=== PATIENT | female | born 1970 | race Caucasian/White ===

== ENCOUNTER 2016-04-28 05:25 | Day surgery (SDC) | payer OTHER ==
[2016-04-27 10:11] VITALS: BMI 28.0
[2016-04-28] VITALS (9 sets, daily range): BP systolic 94–127; BP diastolic 70–84; PULSE 56–106; RESP 16–28; Ht 152.4 cm; Wt 60.8 kg
[~2016-04-28] VITALS: Ht 152.4 cm; Wt 60.8 kg
[2016-04-28] MEDS ORDERED: LACTATED RINGER'S 1,000 ML IV* SCH (05:30)
[2016-04-28] MEDS ORDERED: STRONG IODINE 14 ML SOLUTION TOP ONE (06:54)
[2016-04-28] MEDS ORDERED: ATEN-51 PO (06:55)
[2016-04-28] MEDS ORDERED: CANA100T PO (06:55)
[2016-04-28] MEDS ORDERED: IBUP800T25 PO (06:55)
[2016-04-28] MEDS ORDERED: PROPOFOL 20 ML ONE (07:49)
[2016-04-28] MEDS ORDERED: MIDAZOLAM 1 MG/ML 2 ML INJ ONE (07:49)
[2016-04-28] MEDS ORDERED: FENTAnyl 50 MCG/ML VIAL ONE (07:49)
[2016-04-28] MEDS ORDERED: CEFAZOLIN 1 GM INJ ONE (07:59)
[2016-04-28] MEDS ORDERED: PHENYLephrine (100 MCG/ML) 5ML SYG ONE (08:02)
[2016-04-28] MEDS ORDERED: ONDANSETRON 4 MG INJ ONE (08:02)
[2016-04-28] MEDS ORDERED: FAMOTIDINE 20 MG INJ ONE (08:02)
[2016-04-28] MEDS ORDERED: EPHEDrine SULFATE 50 MG/5 ML SYG ONE (08:14)
[2016-04-28] MEDS ORDERED: PROCHLORPERAZINE 10 MG INJ IV PRN (08:30)
[2016-04-28] MEDS ORDERED: HYDROmorphONE (0.2 MG/ML) 10ML SYG IV PRN ×2 (08:30)
[2016-04-28] MEDS ORDERED: hydrALAzine 20 MG INJ IV PRN (08:30)
[2016-04-28] MEDS ORDERED: MEPERIDINE 25 MG INJ IV PRN (08:30)
[2016-04-28] MEDS ORDERED: HALOPERIDOL 5 MG INJ IV PRN (08:30)
--- NOTE | 2016-04-28 08:40 | PD.PPDC ---
COLLECT ON DELIVERY CLERK Discharge Instruction Diagnosis Final Diagnosis: mild cervical dysplasia Condition Patient Condition: Stable Activity/Restrictions Activity: May Shower Restrictions: No Sexual Activity Nothing in the Vagina No Tornado No Tampons, douche Follow-up Follow-up with Physician: Week/Weeks Return to clinic for HOT BALLER Instructions: Fever greater than 101 Chills Worsening abdominal pain Excessive Vaginal Bleeding More than 2 pads per hour Unable to tolerate diet MEGHAN CHAMORRO MD Apr 28, 2016 08:40
--- NOTE | 2016-04-28 08:42 | HPN ---
Date/Time of Note Date/Time of Note DATE: 04/28/16 TIME: 08:41 Interval H&P Admission Note Pt. seen H&P reviewed: No system changes MEGHAN CHAMORRO MD Apr 28, 2016 08:42
--- NOTE | 2016-04-28 11:06 | OPR ---
DATE OF OPERATION: 04/28/2016 PREOPERATIVE DIAGNOSIS: Mild cervical dysplasia. POSTOPERATIVE DIAGNOSIS: See pathological report. OPERATION PERFORMED: Cold conization of the cervix and fractional dilatation and curettage. ANESTHESIA: General. ANESTHESIOLOGIST: Dr. aRmos.. SURGEON: Gómez Mas MD ESTIMATED BLOOD LOSS: Approximately 20 mL. PROCEDURE: Under the proper induction of general anesthesia, the patient was placed in dorsal litho rik position. Perineal area and vagina wall was prepped and draped in usual aseptic manner. Weigh sonny speculum was introduced and the cervix was visualized, which appeared to be parous. Anterior li p of cervix was grasped with a single tooth tenaculum and hemostatic ligature placed on 3 o'clock an d 9 o'clock using 0 chromic catgut and left the suture left long for the traction. The Lugol soluti on applied on the cervical surface. There was no significant Schiller positive area. Circular inci sarah was made on the cervical mucosa starting from the lower lip counterclockwise, and this cone of the cervix was removed from the cervix en bloc by using De Oliveira scissors at the end. Endocervical cure ttage was performed with obtaining scanty tissue with blood, which was sent to pathology separately and the cavity was sounded, which was 7 cm in depth and the os was dilated gradually enough to submi t the uterine curet which was inserted, then intrauterine cavity was curetted in all directions, wit h obtaining scanty tissue which was sent to pathology. A Sturmdorf suture using [address] arting from the lower lip and followed by upper lip, thus umbilicating the edge of the defect area. The suture on the 3 o'clock and 9 o'clock was cut after a piece of Surgicel was inserted on the def ect. No significant bleeding noted. The patient was sent to recovery room in stable condition. Fi nal sponge count, needle, sponge count correct. Dictated By: GÓMEZ FAIRCHILD/EMA Conf#: [id number] DID#: [id number]
== END 2016-04-28 12:08 | disposition home or self-care (01) ==
LOC: SDS 05:25
PROVIDERS: ATTEND Obstetrics & Gynecology
DX: D06.9 Carcinoma in situ of cervix, unspecified (principal); I10 Essential (primary) hypertension; E11.9 Type 2 diabetes mellitus without complications
CPT/HCPCS: 57520; 82962; 84703; 88305; J0690; J1170; J2175; J2250; J2370; J2405; J3010; Z7512; Z7610

== ENCOUNTER 2016-05-09 18:54 | Emergency (ER) | payer OTHER ==
[~2016-05-09] VITALS: Ht 152.4 cm; Wt 63.0 kg
[~2016-05-09 18:54] MED LIST: ATEN-51 PO; CANA100T PO; IBUP800T25 PO
[2016-05-09 18:59] VITALS: Ht 152.4 cm; Wt 63.0 kg
--- NOTE | 2016-05-09 19:45 | ERD ---
ER Documentation Chief Complaint Date/Time DATE: 05/09/16 TIME: 19:43 Chief Complaint vaginal bleeding after d&c 04/28/16 HPI 45-year-old female presents to emergency department for complaints of vaginal bleeding after a procedure done in 04/28/2016, patient had a dilatation and curettage and biopsy in the cervix is in the cervical area, started to have bleeding afterwards. Patient describes the bleeding as heavy, with clots, soaks 5-7 pads per day. Patient denies any abdominal pain, cramping, fever or chills. Patient denies any nausea vomiting. Patient denies being . Patient had a bilateral tubal ligation done already. Patient denies any fainting episodes, palpitations chest pain or dizziness. ROS All systems reviewed and are negative except as per history of present illness. Medications Home Meds Reported Medications Ibuprofen* (Ibuprofen*) 800 Mg Tab, 800 MG PO Q6H Y for PAIN, TAB 04/28/16 Atenolol* (Atenolol*) 25 Mg Tablet, 25 MG PO DAILY, #30 TAB 04/28/16 Canagliflozin (Invokana) 100 Mg Tablet, 100 MG PO DAILY, TAB 04/28/16 Allergies Allergies: Coded Allergies: No Known Drug Allergy (Verified Allergy, Unknown, 05/09/16) PMhx/Soc History of Surgery: Yes (B TUBAL LIGATION/ , D&C 04/28/16) Anesthesia Reaction: No Hx Neurological Disorder: No Hx Respiratory Disorders: No Hx Cardiac Disorders: Yes (HTN) Hx Psychiatric Problems: No Hx Miscellaneous Medical Probl: Yes (DM) Hx Alcohol Use: Yes (OCCASION) Hx Substance Use: No Hx Tobacco Use: No Smoking Status: Former smoker FmHx Family History: No coronary disease, No diabetes, No other Physical Exam Vitals Vital Signs Date Time Temp Pulse Resp B/P Pulse Ox O2 Delivery O2 Flow Rate FiO2 05/09/16 18:59 97.8 65 20 114/85 100 Physical Exam GENERAL: The patient is well developed and appropriate for usual state of health, in no apparent distress. CHEST: Clear to auscultation bilaterally. There are no rales, wheezes or rhonchi. HEART: Regular rate and rhythm. No murmurs, clicks, rubs or gallops. No S3 or S4. ABDOMEN: Soft, nontender and nondistended. Good bowel sounds. No rebound or guarding. No gross peritonitis. No gross organomegaly or masses. No Varma sign or McBurney point tenderness. BACK: No midline or flank tenderness. EXTREMITIES: Equal pulses bilaterally. There is no peripheral clubbing, cyanosis or edema. No focal swelling or erythema. Full range of motion. Grossly neurovascularly intact. NEURO: Alert and oriented. Cranial nerves 2-12 intact. Motor strength in all 4 extremities with 5/5 strength. Sensation grossly intact. Normal speech and gait. SKIN: There is no apparent rash or petechia. The skin is warm and dry. HEMATOLOGIC AND LYMPHATIC: There is no evidence of excessive bruising or lymphedema. No gross cervical, axillary, or inguinal lymphadenopathy. Result Diagram: 05/09/16 1950 05/09/16 [facility] Results 24 hrs Laboratory Tests Test 05/09/16 19:50 Alanine Aminotransferase (ALT/SGPT) 30IU/L Albumin 4.7g/dl Albumin/Globulin Ratio 1.34 Alkaline Phosphatase 102IU/L Anion Gap 17 Aspartate Amino Transf (AST/SGOT) 23IU/L Basophils # 0.010^3/ul Basophils % 0.4% Beta HCG, Quantitative < 2.4mIU/ml Blood Urea Nitrogen 12mg/dl Calcium Level 10.2mg/dl Carbon Dioxide Level 31mmol/L Chloride Level 99mmol/L Creatinine 0.70mg/dl Direct Bilirubin 0.00mg/dl Eosinophils # 0.210^3/ul Eosinophils % 2.7% Globulin 3.50g/dl Glucose Level 164mg/dl Hematocrit 42.7% Hemoglobin 13.4g/dl Indirect Bilirubin 0.4mg/dl Lymphocytes # 2.810^3/ul Lymphocytes % 36.1% Mean Corpuscular Hemoglobin 26.2pg Mean Corpuscular Hemoglobin Concent 31.4g/dl Mean Corpuscular Volume 83.4fl Mean Platelet Volume 9.7fl Monocytes # 0.310^3/ul Monocytes % 4.3% Neutrophils # 4.310^3/ul Neutrophils % 56.2% Nucleated Red Blood Cells # 0.010^3/ul Nucleated Red Blood Cells % 0.0/100WBC Platelet Count 09748^3/UL Potassium Level 4.3mmol/L Red Blood Count 5.1210^6/ul Red Cell Distribution Width 15.6% Sodium Level 143mmol/L Total Bilirubin 0.4mg/dl Total Protein 8.2g/dl Urine Bacteria FEW Urine Bilirubin NEGATIVE Urine Clarity CLEAR Urine Color YELLOW Urine Epithelial Cells FEW Urine Glucose 0.5%% Urine Hemoglobin 3+ Urine Ketones TRACE Urine Leukocyte Esterase NEGATIVE Urine Microscopic RBC 5-10/HPF Urine Microscopic WBC 0-2/HPF Urine Nitrite NEGATIVE Urine Specific [place] >=1.030 Urine Total Protein NEGATIVE Urine Urobilinogen 0.2 E.U./dL Urine pH 5.5 White Blood Count 7.710^3/ul PROCEDURE: US Pelvis. CLINICAL INDICATION: Vaginal bleeding. TECHNIQUE: The pelvis was evaluated with transabdominal and transvaginal sonography in the axial and sagittal planes. COMPARISON: No prior study is available for comparison. FINDINGS: Uterus: 9.9 x 4.9 x 7.1 cm. Endometrium: 3.5 mm. Right ovary: 3.3 x 1.6 x 2.2 cm. Left ovary: Not visualized. Uterine masses: The uterus is heterogeneous. There is an anterior fibroid in the uterus measuring 1.8 x 1.7 cm and an anterior fibroid in the uterus measuring 4.0 x 2.8 x 3.1 cm. Ovarian masses: None. Color Doppler and pulsed Doppler sonography demonstrate normal flow to the ovaries. Other pelvic masses: None. Free fluid: None. IMPRESSION: 1. Fibroids in the uterus measuring 1.8 cm and 4.0 cm. 2. Otherwise normal pelvic ultrasound. RPTAT: QQ .Nino Alex MD, MD Date Time Electronically viewed and signed by .Nino Alex MD, MD on 05/09/2016 21:06 .R/ CC: STACI NOLAND OIL TRUCK DRIVER Procedures/MDM Medical Decision Making: Patients vaginal bleeding is most likely consistent of dysfunctional uterine bleeding, possibly caused by the uterine fibroids. Patient does not show any evidence of hypovolemic shock. Patients hemoglobin and hematocrit is stable. There is low suspicion for ectopic . SANDRA results show uterine fibroids BetaHCG Quantitative is low consistent with negative There is no signs of symptoms of dehydration. There is low suspicion for sepsis. Patient appears well and is hemodynamically stable. Disposition: Home. Condition: Stable Disposition: Ibuprofen ferrous sulfate, Colace Instructions: Patient is advised to do bed rest, avoid heavy lifting, and avoid having sex until cleared by OB doctor. Patient is advised to follow up with OB doctor for reevaluation of symptoms and possible treatment. Patient is advised that is symptoms are worst, severe bleeding, dizziness, severe abdominal pain, fever, worst signs and symptoms to return to the emergency department immediately. Departure Diagnosis: Primary Impression: Vaginal bleeding Additional Impression: Uterine fibroid Uterine leiomyoma location: unspecified location Qualified Code: D25.9 - Uterine leiomyoma, unspecified location Condition: Stable Patient Instructions: Dysfunctional Uterine Bleeding, Uterine Fibroids Additional Instructions: Patient is advised to do bed rest, avoid heavy lifting, and avoid having sex until cleared by OB doctor. Patient is advised to follow up with OB doctor for reevaluation of symptoms and possible treatment. Patient is advised that is symptoms are worst, severe bleeding, dizziness, severe abdominal pain, fever, worst signs and symptoms to return to the emergency department immediately. STACI NOLAND NP May 09, 2016 19:45
[2016-05-09 20:09] LABS: ADD UMIC YES; URINE BILIRUBIN (Dip) NEGATIVE (NEGATIVE); URINE BLOOD (Dip) 3+ (NEGATIVE); URINE COLOR YELLOW (YELLOW); URINE KETONES (Dip) TRACE (NEGATIVE); URINE LEUKOCYTE ESTERASE (Dip) NEGATIVE (NEGATIVE); URINE NITRITE (Dip) NEGATIVE (NEGATIVE); URINE TOTAL PROTEIN (Dip) NEGATIVE (NEGATIVE); URINE UROBILINOGEN (Dip) 0.2 E.U./dL (0.1-1.0)
[2016-05-09 20:11] LABS: ADD SCAN DIFF NO
[2016-05-09 20:13] LABS: BASOPHILS % 0.4 % (0.0-2.0); EOSINOPHILS # 0.2 10^3/ul (0.0-0.5); EOSINOPHILS % 2.7 % (0.0-7.0); HEMATOCRIT 42.7 % (37.0-47.0); HEMOGLOBIN 13.4 g/dl (12.0-16.0); LYMPHOCYTES # 2.8 10^3/ul (0.8-2.9); LYMPHOCYTES % 36.1 % (15.0-51.0); MEAN CORPUSCULAR HEMOGLOBIN 26.2 pg (29.0-33.0); MEAN CORPUSCULAR HGB CONC 31.4 g/dl (32.0-37.0); MEAN CORPUSCULAR VOLUME 83.4 fl (82.0-101.0); MEAN PLATELET VOLUME 9.7 fl (7.4-10.4); MONOCYTE # 0.3 10^3/ul (0.3-0.9); MONOCYTES % 4.3 % (0.0-11.0); NEUTROPHIL # 4.3 10^3/ul (1.6-7.5); NEUTROPHILS % 56.2 % (39.0-77.0); PLATELET COUNT 405 10^3/UL (140-415); RED BLOOD COUNT 5.12 10^6/ul (4.20-5.40); RED CELL DISTRIBUTION WIDTH 15.6 % (11.5-14.5); WHITE BLOOD COUNT 7.7 10^3/ul (4.8-10.8)
[2016-05-09 20:24] LABS: BACTERIA,URINE FEW
[2016-05-09 20:26] LABS: ALBUMIN 4.7 g/dl (3.3-4.9); POTASSIUM 4.3 mmol/L (3.5-5.1)
[2016-05-09 20:28] LABS: BILIRUBIN,INDIRECT 0.4 mg/dl (0-1.1); BILIRUBIN,TOTAL 0.4 mg/dl (0.2-1.3); CREATININE 0.7 mg/dl (0.44-1.00); TOTAL PROTEIN 8.2 g/dl (6.1-8.1)
[2016-05-09 20:29] LABS: ALBUMIN/GLOBULIN RATIO 1.34; CALCIUM 10.2 mg/dl (8.4-10.2)
--- NOTE | 2016-05-09 21:06 | RADRPT ---
PROCEDURE: US Pelvis. CLINICAL INDICATION: Vaginal bleeding. TECHNIQUE: The pelvis was evaluated with transabdominal and transvaginal sonography in the axial a nd sagittal planes. COMPARISON: No prior study is available for comparison. FINDINGS: Uterus: 9.9 x 4.9 x 7.1 cm. Endometrium: 3.5 mm. Right ovary: 3.3 x 1.6 x 2.2 cm. Left ovary: Not visualized. Uterine masses: The uterus is heterogeneous. There is an anterior fibroid in the uterus measuring 1 .8 x 1.7 cm and an anterior fibroid in the uterus measuring 4.0 x 2.8 x 3.1 cm. Ovarian masses: None. Color Doppler and pulsed Doppler sonography demonstrate normal flow to the ova juan pablo. Other pelvic masses: None. Free fluid: None. IMPRESSION: 1. Fibroids in the uterus measuring 1.8 cm and 4.0 cm. 2. Otherwise normal pelvic ultrasound. RPTAT: QQ .Nino Alex MD, MD Date Time Electronically viewed and signed by .Nino Alex MD, on 05/09/2016 21:06 .R/
[2016-05-09] MEDS ORDERED: DOCU-144 PO (21:15)
[2016-05-09] MEDS ORDERED: FER325 PO (21:15)
[2016-05-09] MEDS ORDERED: IBUP-1542 PO (21:15)
[2016-05-09 22:06] VITALS: BP 123/82; PULSE 67; RESP 16; TEMP 98
== END 2016-05-09 22:07 | disposition home or self-care (01) ==
LOC: FTE 18:54
DX: N93.9 Abnormal uterine and vaginal bleeding, unspecified (principal); I10 Essential (primary) hypertension; E11.9 Type 2 diabetes mellitus without complications; D25.9 Leiomyoma of uterus, unspecified; Z87.891 Personal history of nicotine dependence; Z79.84 Long term (current) use of oral hypoglycemic drugs
CPT/HCPCS: 76830; 76856; 80053; 81001; 84702; 85025; Z7502; 81003

== ENCOUNTER 2016-11-01 05:29 | Inpatient (IN) | payer OTHER ==
[2016-10-31 11:44] VITALS: BMI 28.0
--- NOTE | 2016-10-31 17:58 | HP ---
Date/Time of Note Date/Time of Note DATE: 10/31/16 TIME: 17:39 Assessment/Plan VTE Prophylaxis VTE Prophylaxis Intervention: ambulation, anti-embolic stocking Assessment/Plan Assessment/Plan A AUSTEN III, uterine fibroids P JENNIFER HPI/ROS Admit Date/Time Admit Date/Time Hx of Present Illness 46 y.o [id number] for JENNIFER for CINIII and uterine fibroids cold cone biopsy done in apr 2016 revealed HSIL also had tubal sterilization done known to have D.M and HTN HbA!C 6.6 ROS Constitutional: improved, no complaints Eyes: no complaints ENT: no complaints Respiratory: no complaints Cardiovascular: no complaints Gastrointestinal: no complaints Genitourinary: no complaints Musculoskeletal: no complaints Skin: no complaints Neurologic: no complaints Endocrine: no complaints Lymphatic: no complaints Psychological: nl mood/affect, no complaints Immunologic: no complaints PMH/Family/Social Past Medical History Medical History: diabetes, hypertension Past Surgical History tubal sterilisation endometrial ablation X5 normal vaginal delivery Family History Significant Family History: cancer (uterine cancer ), diabetes, hypertension Exam/Review of Systems Exam Constitutional: alert, oriented, well developed Psych: nl mood/affect, no complaints Head: atraumatic, normocephalic Eyes: EOMI, PERRL, nl conjunctiva, nl lids, nl sclera ENMT: nl external ears & nose, nl lips & teeth, nl nasal mucosa & septum Neck: non-tender, supple Respiratory: clear to auscultation, normal air movement Cardiovascular: nl pulses, regular rate and rhythm Gastrointestinal: nl liver, spleen, non-tender, soft Musculoskeletal: nl extremities to inspection Extremities: normal pulses Neurological: SWEEPER DRIVER II-XII intact, nl mental status, nl speech, nl strength Skin: nl turgor, No rash or lesions Lymph: nl lymph nodes Medications Medications Current Medications Cefazolin Sodium/ Dextrose 50 ml @ 100 mls/hr PREOP IVPB ; Start 11/01/16 at 06 :00; Stop 11/01/16 at 15:00 Lactated Ringer's (Lr) 1,000 ml @ 125 mls/hr Q8H IV* ; Start 11/01/16 at 07:00 ; Stop 11/01/16 at 14:59 MEGHAN CHAMORRO MD Oct 31, 2016 17:49
[2016-11-01] VITALS (26 sets, daily range): BP systolic 91–128; BP diastolic 49–80; PULSE 50–78; RESP 16–26; Ht 152.4 cm; Wt 63.3 kg
[~2016-11-01] VITALS: Ht 152.4 cm; Wt 63.3 kg
[~2016-11-01 05:29] MED LIST changes: +DOCU-144 PO; +FER325 PO; +IBUP-1542 PO
[2016-11-01] MEDS ORDERED: CEFAZOLIN 2 GM/50 ML (PMX) 50 ML IVPB SCH (06:00)
[2016-11-01] MEDS ORDERED: OMEG1CAP2 PO (06:30)
[2016-11-01] MEDS ORDERED: ATROPINE 1 MG/10 ML SYRINGE ONE (07:00)
[2016-11-01] MEDS ORDERED: LACTATED RINGER'S 1,000 ML IV* SCH (07:00)
[2016-11-01] MEDS ORDERED: ROCURONIUM 50 MG INJ ONE ×2 (07:40→09:32)
[2016-11-01] MEDS ORDERED: PROPOFOL 20 ML ONE (07:40)
[2016-11-01] MEDS ORDERED: LIDOCAINE 2% (SDV) 5 ML INJ ONE (07:40)
[2016-11-01] MEDS ORDERED: SUCCINYLCHOLINE CHLORIDE 100 MG/5 ML SYG IV ONE (07:40)
[2016-11-01] MEDS ORDERED: NEOSTIGMINE 3 MG/3 ML SYRINGE ONE (07:40)
[2016-11-01] MEDS ORDERED: MEPERIDINE 100 MG INJ ONE (07:40)
[2016-11-01] MEDS ORDERED: GLYCOPYRROLATE 0.4 MG INJ ONE ×2 (07:40→09:59)
[2016-11-01] MEDS ORDERED: ONDANSETRON 4 MG INJ ONE ×2 (09:59→10:44)
--- NOTE | 2016-11-01 10:39 | SIPON ---
Date/Time of Note Date/Time of Note DATE: 11/01/16 TIME: 10:36 Operative Report Free Text/Dictation here for JENNIFER poss BSO Preoperative Diagnosis uterine fibroids and CINIII Postoperative Diagnosis see path report Operation/Procedure Performed JENNIFER and BS Surgeon: MEGHAN CHAMORRO MD therapeutic recreation assistant: CRIS MARC Anesthesia Type: general Estimated Blood Loss: 100 - 150 ml's Transfusion Required: no Specimens uterus cervix bilateral tubes Grafts/Implants: none Complications: no MEGHAN CHAMORRO MD Nov 01, 2016 10:39
[2016-11-01] MEDS ORDERED: HYDROmorphONE (0.2 MG/ML) 10ML SYG IV ONE (10:43)
[2016-11-01] MEDS ORDERED: MEPERIDINE 25 MG INJ ONE (10:43)
[2016-11-01] MEDS ORDERED: HYDROmorphONE 0.2 MG/ML PCA ONE (10:43)
[2016-11-01] MEDS ORDERED: FENTAnyl 50 MCG/ML VIAL ONE (10:43)
[2016-11-01] MEDS ORDERED: ONDANSETRON 4 MG INJ IV PRN (11:00)
[2016-11-01] MEDS ORDERED: MEPERIDINE 25 MG INJ IV PRN (11:00)
[2016-11-01] MEDS ORDERED: MIDAZOLAM 1 MG/ML 2 ML INJ IV PRN (11:00)
[2016-11-01] MEDS ORDERED: HYDROCODONE/APAP (5/325) TAB PO PRN (11:00)
[2016-11-01] MEDS ORDERED: DIPHENHYDRAMINE 50 MG INJ IV PRN ×2 (11:00)
[2016-11-01] MEDS ORDERED: hydrALAzine 20 MG INJ IV PRN (11:00)
[2016-11-01] MEDS ORDERED: NALOXONE (0.4 MG/ML) INJ IV PRN (11:00)
[2016-11-01] MEDS ORDERED: morphine (1 MG/ML) 10ML SYRINGE IV PRN ×3 (11:00)
[2016-11-01] MEDS ORDERED: EPHEDrine SULFATE 50 MG/5 ML SYG IV PRN (11:00)
[2016-11-01] MEDS ORDERED: ACETAMINOPHEN 325 MG TAB PO PRN (11:00)
[2016-11-01] MEDS ORDERED: HYDROmorphONE 0.2 MG/ML PCA IV SCH (11:00)
[2016-11-01] MEDS ORDERED: LABETALOL HCL 20MG INJ IV PRN (11:00)
[2016-11-01] MEDS ORDERED: FENTAnyl 50 MCG/ML VIAL IV PRN ×2 (11:00)
[2016-11-01] MEDS: FENTAnyl 50 MCG/ML VIAL IV PRN ×2 (11:01→11:08)
[2016-11-01] MEDS: IBUPROFEN 600 MG TAB PO SCH ×2 (12:00→17:06)
[2016-11-01] MEDS: CEFAZOLIN 2 GM/50 ML (PMX) 50 ML IVPB SCH ×2 (14:51→22:22)
[2016-11-01] MEDS: LACTATED RINGER'S 1,000 ML IV SCH ×2 (14:54→20:42)
[2016-11-01] MEDS: ONDANSETRON 4 MG INJ IV PRN ×2 (16:39→22:22)
[2016-11-01] MEDS: KETOROLAC 30 MG INJ IV PRN (20:09)
[2016-11-02 00:33] VITALS: BP 117/69; RESP 20
[2016-11-02] MEDS: KETOROLAC 30 MG INJ IV PRN ×3 (02:34→16:29)
[2016-11-02 05:30] LABS: BASOPHILS % 0.3 % (0.0-2.0); EOSINOPHILS % 0.3 % (0.0-7.0); HEMATOCRIT 32.4 % (37.0-47.0); HEMOGLOBIN 10.9 g/dl (12.0-16.0); LYMPHOCYTES # 1.8 10^3/ul (0.8-2.9); LYMPHOCYTES % 15.7 % (15.0-51.0); MEAN CORPUSCULAR HGB CONC 33.6 g/dl (32.0-37.0); MEAN CORPUSCULAR VOLUME 89.3 fl (82.0-101.0); MEAN PLATELET VOLUME 9.9 fl (7.4-10.4); MONOCYTE # 0.7 10^3/ul (0.3-0.9); MONOCYTES % 6.3 % (0.0-11.0); PLATELET COUNT 251 10^3/UL (140-415); RED BLOOD COUNT 3.63 10^6/ul (4.20-5.40); WHITE BLOOD COUNT 11.3 10^3/ul (4.8-10.8)
[2016-11-02] MEDS ORDERED: OXYCODONE/ACETAMINOPHEN (5/325) TAB PO PRN (05:30)
[2016-11-02] MEDS: CEFAZOLIN 2 GM/50 ML (PMX) 50 ML IVPB SCH (05:32)
[2016-11-02] MEDS: OXYCODONE/ACETAMINOPHEN (5/325) TAB PO PRN ×3 (05:32→18:23)
[2016-11-02] MEDS: ONDANSETRON 4 MG INJ IV PRN ×2 (05:32→21:45)
[2016-11-02] MEDS: LACTATED RINGER'S 1,000 ML IV SCH ×3 (05:36→16:30)
[2016-11-02 06:00] LABS: CALCIUM 8.1 mg/dl (8.4-10.2); CREATININE 0.71 mg/dl (0.44-1.00); POTASSIUM 3.8 mmol/L (3.5-5.1)
[2016-11-02] MEDS: IBUPROFEN 600 MG TAB PO SCH ×6 (06:00→23:58)
[2016-11-02 08:00] VITALS: BP 99/55; RESP 18
[2016-11-02 12:27] LABS: ADD UMIC NO; UR ASCORBIC ACID NEGATIVE (NEGATIVE); UR BILIRUBIN (Dip) NEGATIVE (NEGATIVE); UR BLOOD (Dip) NEGATIVE (NEGATIVE); UR CLARITY CLEAR (CLEAR); UR COLOR YELLOW (YELLOW); UR GLUCOSE (Dip) 3+ mg/dL (NEGATIVE); UR KETONES (Dip) 2+ mg/dL (NEGATIVE); UR LEUKOCYTE ESTERASE (Dip) NEGATIVE Leu/ul (NEGATIVE); UR NITRITE (Dip) NEGATIVE (NEGATIVE); UR TOTAL PROTEIN (Dip) NEGATIVE (NEGATIVE); UR UROBILINOGEN (Dip) NEGATIVE (NEGATIVE)
[2016-11-02 14:00] VITALS: BP_SYST 120; BP_SYST 143; BP_DIAS 61; BP_DIAS 76; RESP 18; RESP 20
[2016-11-02 19:59] VITALS: BP 93/61; RESP 20
[2016-11-03] MEDS: KETOROLAC 30 MG INJ IV PRN ×2 (00:44→17:52)
[2016-11-03] MEDS: LACTATED RINGER'S 1,000 ML IV SCH ×3 (02:15→22:42)
[2016-11-03] MEDS: OXYCODONE/ACETAMINOPHEN (5/325) TAB PO PRN ×3 (04:39→23:24)
[2016-11-03] MEDS: IBUPROFEN 600 MG TAB PO SCH ×3 (05:17→17:43)
[2016-11-03 08:24] VITALS: BP 104/56; RESP 16
[2016-11-03] MEDS: ONDANSETRON 4 MG INJ IV PRN (12:57)
[2016-11-03 16:14] VITALS: BP 109/70; RESP 16
[2016-11-03] MEDS ORDERED: OXYCODONE/ACETAMINOPHEN (5/325) TAB PO PRN ×2 (17:00)
[2016-11-03 20:20] VITALS: BP 109/71; RESP 20
--- NOTE | 2016-11-03 21:10 | PN ---
Date/Time of Note Date/Time of Note DATE: 11/03/16 TIME: 21:05 Assessment/Plan Lines/Catheters IV Catheter Type (from Nrs): Peripheral IV Abdullahi in Place (from Nrs): No Subjective 24 Hr Interval Summary S passing flatus tolerstes diet well O vss afebrile urinc culture no growth abdomen soft wound dry no vaginal bleeding calf no tenderness po CBC 11.9/ 10.9 32.4 path report AUSTEN II Adenomyosis/ uterine fibroid paraovarian cyst A stable PO JENNIFER BS P discharge home in am Exam/Review of Systems Vital Signs Vitals Vital Signs Date Time Temp Pulse Resp B/P Pulse Ox O2 Delivery O2 Flow Rate FiO2 11/03/16 20:20 98.3 80 20 109/71 98 11/02/16 08:00 Nasal Cannula 2.0 Intake and Output 11/02/16 11/02/16 11/03/16 15:00 23:00 07:00 Intake Total 2560 ml 1100 ml Output Total 900 ml Balance 1660 ml 1100 ml Results Result Diagram: 11/02/16 0448 11/02/16 0448 MEGHAN CHAMORRO MD Nov 03, 2016 21:10
--- NOTE | 2016-11-03 23:54 | OPR ---
DATE OF OPERATION: 11/01/2016 PREOPERATIVE DIAGNOSIS: Uterine leiomyomata and AUSTEN 3. POSTOPERATIVE DIAGNOSIS: See pathological report and uterine fibroid. OPERATION PERFORMED: Total abdominal hysterectomy, bilateral salpingectomy. ANESTHESIA: General. ANESTHESIOLOGIST: Dr. Haq. SURGEON: Tanika Mas MD BILINGUAL ADMINISTRATIVE ASSISTANT: Yoan Garrido MD ESTIMATED BLOOD LOSS: 200 cc. OPERATIVE PROCEDURE: Under appropriate induction of general anesthesia, patient was placed on frog position. Abdullahi catheter was introduced into the bladder under sterile condition, repositioned to supine. Abdominal wall was prepped and draped in usual aseptic manner. A transverse incision was made along the previous incision. Incision scar was excised. Incision was carried down through the subcutaneous tissue to the anterior rectus fascia, which was incised transversely in length of the incision. The fascial flap was created by blunt and sharp dissection of tendinous attachment upward and downward, and 2 rectus muscles split. Peritoneum cavity was entered digitally. Patient was placed in Trendelenburg position. Pelvic organ was explored. The uterus felt to be approximately 10 weeks' of gestational size, with marked irregularity on the surface of uterus, suggesting multiple fibroids, and both fallopian tubes and ovaries were checked, and both were normal. retractor was introduced, and the bowel was packed away from the operative field. The fundus was held with a Cecy forceps, and both cornua were clamped with a large Pean forceps. The left round ligament was clamped and cut, ligated with #1 chromic catgut suture, was left long, and anterior leaf of the broad ligament was incised inferomedially toward the cervicovaginal fold and create half of the bladder flap, and the bladder was pushed down. The broad ligament was windowed, and the proximal portion of the utero-ovarian ligament and fallopian tube was clamped and cut and doubly ligated with #1 chromic catgut. The skeletonization of the uterine vessel was done, and the uterine vessel was clamped and cut, transfixed with #1 chromic catgut. The same procedure was done on the right round ligament, which was clamped, cut and ligated with #1 chromic catgut suture, left long, and the anterior leaf of the broad ligament was incised inferomedially toward the cervicovaginal fold, which was incised and pushed the bladder down and created the bladder flap. The right proximal portion of fallopian tube and utero-ovarian ligament which was clamped and cut, doubly ligated with #1 chromic catgut. The uterine vessel was skeletonized, and the uterine vessel was clamped and cut and transfixed with #1 chromic catgut. At this point, we decided to remove the fundus for the better visualization, which was cut off, and the cervix was held with a 4-prong tenaculum. Further dissection led down down from the cervix, and the cardinal ligament was clamped and cut, ligated with #1 chromic catgut in several bites, and the uterosacral ligaments were clamped and cut, ligated with #1 chromic catgut suture, left long for the next procedure. Then the vaginal cavity was entered with the scalpel, and through this hole, was used, and circular incision was made and removed the entire cervix from the operative field. Multiple Kochers were used to hold the vaginal vault. Vaginal vault was closed with #1 chromic catgut in such a fashion, anterior vaginal wall, cardinal ligament and uterosacral ligament, posterior vaginal wall, which was closed and left long. Same procedure was done on the contralateral angle, hemostatic ligature placed in such a fashion, anterior vaginal wall, cardinal ligament, uterosacral ligament, posterior ligament and sutured tied and left long. Rest of the vaginal vault was closed with 0 chromic catgut in a [id number] manner. At this point, we decided to do the salpingectomy, and the distal portion of fallopian tube on both sides was clamped with a Pean and excised the tube, and the pedicle was doubly ligated with 0 plain, both sides. The reperitonealization done because there is some oozing on the edge of the visceral peritoneum, which was tacked closed with a 2-0 chromic catgut in continuous manner. Irrigation done. No bleeders noted. The Surgicel was applied on top of the bladder and then 2 Interceed was placed on both ovaries. All the sponge count correct, and the retractor was removed, and parietal peritoneum was closed using 0 chromic catgut in continuous manner, muscle closed with 0 chromic catgut, continuous manner. Fascia closed with #1 Vicryl in continuous manner in 2 segments, and the subcutaneous tissue irrigated with water. This layer was approximated with 2-0 plain in continuous manner after the adequate hemostasis was secured. Skin closed with the Insorb. Steri-Strips applied. A pressure dressing applied. Estimated blood loss approximately 200 cc. The patient withstood the procedure, was sent to the recovery room in stable condition. Dictated By: Tanika Mas MD /morris/jennifer /Document#: [id number]
[2016-11-04 02:45] VITALS: BP 95/57; RESP 18
[2016-11-04] MEDS: OXYCODONE/ACETAMINOPHEN (5/325) TAB PO PRN (03:22)
[2016-11-04] MEDS: IBUPROFEN 600 MG TAB PO SCH ×4 (05:28→18:00)
[2016-11-04 08:32] VITALS: BP 121/78; RESP 20
[2016-11-04] MEDS: LACTATED RINGER'S 1,000 ML IV SCH (08:42)
[2016-11-04] MEDS: ONDANSETRON 4 MG INJ IV PRN ×2 (09:38→15:52)
[2016-11-04 14:39] VITALS: BP 119/71; RESP 18
--- NOTE | 2016-11-04 17:00 | PD.PPDC ---
TRUST ADVISOR Discharge Instruction Diagnosis Final Diagnosis: uterine fibroids cervical dysplasia adenomyosis, paraovarian cyst Condition Patient Condition: Stable Diet Diet: Resume Regular Diet Activity/Restrictions Activity: May Shower Restrictions: No Exercising No Lifting Minimize Stair-climbing No Sexual Activity Nothing in the Vagina No [place]ill No Tampons, douche Wound/Drain Care Instructions Wound/Drain Care Instructions: Wash with soap and water Keep clean and dry Follow-up Follow-up with Physician: 2, Week/Weeks Return to clinic for BUILDING ANALYST/SUPERVISOR Instructions: Fever greater than 101 Chills Worsening abdominal pain Excessive Vaginal Bleeding More than 2 pads per hour Unable to tolerate diet Surgical Instructions: Incisional Drainage Incisional Redness MEGHAN CHAMORRO MD Nov 04, 2016 17:00
--- NOTE | 2016-11-04 17:06 | DS ---
Date/Time of Note Date/Time of Note DATE: 11/04/16 TIME: 17:02 Discharge Summary Admission/Discharge Info Admit Date/Time Nov 01, 2016 at 05:29 Discharge Date/Time 03/22/1729 Discharge Diagnosis uterine fibroids CINIII adenomyosis paraovarian cyst Patient Condition: Stable Consults none Procedures total abadominal hysterectomy and bilateral salphingectomy Hx of Present Illness 46 y.o [id number] for JENNIFER for CINIII and uterine fibroids cold cone biopsy done in apr 2016 revealed HSIL also had tubal sterilization done known to have D.M and HTN HbA!C 6.6 Hospital Course postop patient had unevenful course tolerating diet well but no bm yet Home Meds Active Scripts Docusate Sodium* (Colace*) 100 Mg Capsule, 100 MG PO TID, #30 CAP Prov:STACI NOLAND NUTRITION INSTRUCTOR 05/09/16 Ferrous Sulfate* (Ferrous Sulfate*) 325 Mg Tabec, 325 MG PO BID, #60 TAB Prov:STACI NOLAND NUTRITION INSTRUCTOR 05/09/16 Ibuprofen* (Motrin*) 600 Mg Tab, 600 MG PO Q6H Y for PAIN AND OR ELEVATED TEMP, #30 TAB Prov:STACI NOLAND NUTRITION INSTRUCTOR 05/09/16 Reported Medications [place]-3 Acid Ethyl Esters (Lovaza) 1 Gm Capsule, 2 GM PO BID, CAP 11/01/16 Ibuprofen* (Ibuprofen*) 800 Mg Tab, 800 MG PO Q6H Y for PAIN, TAB 04/28/16 Atenolol* (Atenolol*) 25 Mg Tablet, 25 MG PO DAILY, #30 TAB 04/28/16 Canagliflozin (Invokana) 100 Mg Tablet, 100 MG PO DAILY, TAB 04/28/16 Follow-up Plan 2weeks at the office Primary Care Provider Yael Harding DO Time spent on discharge: < 30 minutes MEGHAN CHAMORRO MD Nov 04, 2016 17:06
== END 2016-11-04 18:45 | disposition home or self-care (01) | DRG 743 ==
LOC: REC 05:29 → MS1 11:52
PROVIDERS: ADMIT Obstetrics & Gynecology; ATTEND Obstetrics & Gynecology
PROC: 0UTC0ZZ Resection of Cervix, Open Approach (ICD-10-PCS; 2016-11-01)
PROC: 0UB70ZZ Excision of Bilateral Fallopian Tubes, Open Approach (ICD-10-PCS; 2016-11-01)
PROC: 0UT90ZZ Resection of Uterus, Open Approach (ICD-10-PCS; principal; 2016-11-01 07:30)
DX: N87.1 Moderate cervical dysplasia (principal); D25.1 Intramural leiomyoma of uterus
CPT/HCPCS: 80048; 81003; 82962; 85025; 86850; 86900; 86901; 86920; 87086; 88305; J0461; J0690; J1170; J1885; J2175; J2405; J2710; J3010; J7120; J7999

== ENCOUNTER 2018-03-27 16:04 | Emergency (ER) | payer OTHER ==
[~2018-03-27] VITALS: Ht 149.9 cm; Wt 68.0 kg
[~2018-03-27 16:04] MED LIST changes: +IBUP-1545 PO; -IBUP800T25 PO; +OMEG1CAP2 PO
[2018-03-27 16:16] VITALS: BP 142/92; PULSE 66; RESP 18; Ht 149.9 cm; Wt 68.0 kg
[2018-03-27] MEDS ORDERED: KETOROLAC 30 MG INJ IM STA (16:40)
[2018-03-27] MEDS ORDERED: DEXAMETHASONE 10 MG/ML 1 ML INJ IM ONE (17:00)
[2018-03-27] MEDS ORDERED: CYCL10TA7 PO (17:17)
[2018-03-27] MEDS ORDERED: NAPR-985 PO (17:17)
--- NOTE | 2018-03-27 18:05 | ERD ---
ER Documentation Chief Complaint Chief Complaint right sided back d/t fall at work HPI Patient is a 47-year-old female With past medical history of herniated disc, hypertension, type 2 diabetes, presenting to the emergency department complaining of right-sided low back pain with radiation down her right leg after injury yesterday. The patient states she accidentally twisted to the side and felt a sharp pain in her right low back. Pain is worse with walking. Pain is rated 8/10 in severity and is constant. She took no medication for relief of symptoms. She denies any loss of bowel or bladder function. She denies any other symptoms or injuries at this time. ROS All systems reviewed and are negative except as per history of present illness. Medications Home Meds Active Scripts Naproxen* (Naprosyn*) 500 Mg Tablet, 500 MG PO BID PRN for PAIN AND/OR INFLAMMATION, #30 TAB Prov:ALFONSO WILKERSON PA-C 03/27/18 Cyclobenzaprine Hcl* (Cyclobenzaprine Hcl*) 10 Mg Tablet, 10 MG PO TID, #15 TAB Prov:ALFONSO WILKERSON PA-C 03/27/18 Docusate Sodium* (Colace*) 100 Mg Capsule, 100 MG PO TID, #30 CAP Prov:STACI NOLAND CLIENT RESOURCE SPECIALIST 05/09/16 Ferrous Sulfate* (Ferrous Sulfate*) 325 Mg Tabec, 325 MG PO BID, #60 TAB Prov:STACI NOLAND CLIENT RESOURCE SPECIALIST 05/09/16 Ibuprofen* (Motrin*) 600 Mg Tab, 600 MG PO Q6H PRN for PAIN AND OR ELEVATED TEMP, #30 TAB Prov:STACI NOLAND CLIENT RESOURCE SPECIALIST 05/09/16 Reported Medications [place]-3 Acid Ethyl Esters (Lovaza) 1 Gm Capsule, 2 GM PO BID, CAP 11/01/16 Ibuprofen* (Ibuprofen*) 800 Mg Tab, 800 MG PO Q6H PRN for PAIN, TAB 04/28/16 Atenolol* (Atenolol*) 25 Mg Tablet, 25 MG PO DAILY, #30 TAB 04/28/16 Canagliflozin (Invokana) 100 Mg Tablet, 100 MG PO DAILY, TAB 04/28/16 Allergies Allergies: Coded Allergies: No Known Drug Allergy (Verified Allergy, Unknown, 11/01/16) PMhx/Soc History of Surgery: Yes (TUBAL LIGATION,D & C,ABLATION, HYSTERCTOMY) Anesthesia Reaction: No Hx Neurological Disorder: No Hx Respiratory Disorders: No Hx Cardiac Disorders: No Hx Psychiatric Problems: No Hx Miscellaneous Medical Probl: Yes (DIABETIC) Hx Alcohol Use: Yes (SOCIALLY) Hx Substance Use: No Hx Tobacco Use: Yes Smoking Status: Current some day smoker FmHx Family History: No diabetes Physical Exam Vitals Vital Signs Date Temp Pulse Resp B/P (MAP) Pulse Ox O2 O2 Flow FiO2 Time Delivery Rate 03/27/18 98.8 66 18 142/92 99 16:16 (109) Physical Exam Const: No acute distress Head: Atraumatic Eyes: Normal Conjunctiva ENT: Normal External Ears, Nose and Mouth. Neck: Full range of motion. No meningismus. Resp: Clear to auscultation bilaterally Cardio: Regular rate and rhythm, no murmurs Skin: No petechiae or rashes Back: Tenderness palpation in the paraspinal region of the lumbar spine on the right. Positive straight leg raise on the right. Ext: No cyanosis, or edema Neur: Awake and alert Psych: Normal Mood and Affect Results 24 hrs Current Medications Medications Dose Sig/Anthony Start Time Status Last (Trade) Ordered Route PRN Stop Time Admin Dose Reason Admin Ketorolac 30 mg ONCE STAT 03/27/18 DC 03/27/18 Tromethamine IM 16:40 16:49 (Toradol) 03/27/18 16:41 10 mg ONCE ONCE 03/27/18 DC 03/27/18 Dexamethasone IM 17:00 16:49 (Decadron) 03/27/18 17:01 Procedures/MDM 47-year-old female presenting to the emergency department complaints of right- sided low back pain with radiation down her right leg. History and physical examination most consistent with right-sided low back pain with sciatica. Patient was administered Decadron and Toradol in the department with good response. She was significantly improved prior to discharge. Patient's musculoskeletal symptoms have stabilized while they have been evaluated in the department and are appropriate for outpatient work up. No evidence of cauda equina, cord compression, infiltrative, or infectious etiology. Patient's blood pressure was elevated (>120/80) but appears stable without evidence of hypertension emergency or urgency. The patient is to follow-up and pursue outpatient monitoring and therapy with their primary care physician within 1 week and return immediately if they have any new, worsening, or concerning symptoms. Departure Diagnosis: Primary Impression: Back pain with sciatica Condition: Fair Patient Instructions: Back Pain W/ Sciatica Additional Instructions: Call your primary care doctor TOMORROW for an appointment during the next 1-2 days.See the doctor sooner or return here if your condition worsens before your appointment time. ALFONSO WILKERSON PA-C Mar 27, 2018 18:05
== END 2018-03-27 17:25 | disposition home or self-care (01) ==
LOC: FTE 16:04
DX: M54.41 Lumbago with sciatica, right side (principal); F17.210 Nicotine dependence, cigarettes, uncomplicated; E11.9 Type 2 diabetes mellitus without complications; I10 Essential (primary) hypertension
CPT/HCPCS: 96372; J1100; J1885; Z7502

== ENCOUNTER 2018-09-08 05:34 | Emergency (ER) | payer OTHER ==
[~2018-09-08] VITALS: Ht 152.4 cm; Wt 64.7 kg
[~2018-09-08 05:34] MED LIST changes: +CYCL10TA7 PO; +NAPR-985 PO
[2018-09-08 05:37] VITALS: Ht 152.4 cm; Wt 64.7 kg
[2018-09-08] MEDS ORDERED: KETOROLAC 60 MG INJ IM STA (06:15)
[2018-09-08] MEDS ORDERED: NAPR-985 PO (06:27)
[2018-09-08] MEDS ORDERED: MED4DP PO (06:27)
[2018-09-08] MEDS ORDERED: HYDR-4011 PO (06:27)
[2018-09-08] MEDS ORDERED: CYCL10TA7 PO (06:29)
[2018-09-08] MEDS ORDERED: DIAZEPAM 5 MG TAB PO ONE (06:30)
[2018-09-08] MEDS ORDERED: DEXAMETHASONE 10 MG/ML 1 ML INJ IM ONE (06:30)
[2018-09-08 06:41] VITALS: BP 107/68; PULSE 67; RESP 16
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
== END 2018-09-08 07:08 | disposition home or self-care (01) ==
LOC: FTE 05:34
DX: M54.5 Low back pain (principal); I10 Essential (primary) hypertension
CPT/HCPCS: 81025; J1100; J1885; Z7610; 96372

== ENCOUNTER 2018-11-22 12:19 | Emergency (ER) | payer OTHER ==
[~2018-11-22] VITALS: Ht 152.4 cm; Wt 66.4 kg
[~2018-11-22 12:19] MED LIST changes: +HYDR-4011 PO; +MED4DP PO
[2018-11-22 12:23] VITALS: BP 104/68; PULSE 55; RESP 16; Ht 152.4 cm; Wt 66.4 kg
[2018-11-22] MEDS ORDERED: KETOROLAC 30 MG INJ IM STA (13:01)
[2018-11-22] MEDS ORDERED: DEXAMETHASONE 10 MG/ML 1 ML INJ IM ONE (13:30)
== END 2018-11-22 13:40 | disposition home or self-care (01) ==
LOC: FTE 12:19
DX: M54.5 Low back pain (principal); I10 Essential (primary) hypertension
CPT/HCPCS: 81025; 96372; J1100; J1885; Z7502